=== PATIENT | female | born 1970 | race American Indian/Alaskan Native ===

== ENCOUNTER 2018-09-19 09:17 | Emergency (ER) | payer OTHER ==
--- NOTE | 2018-09-19 09:56 | Emergency Department Report ---
ED Lower Extremity HPI - General Chief Complaint: Extremity Injury, Lower Stated Complaint: KNEE PAIN Time Seen by Provider: 09/19/18 09:45 Source: patient Mode of arrival: Ambulatory Limitations: No Limitations - History of Present Illness Initial Comments: 48-year-old female with history of arthritis and right knee presents with right knee pain 1 week. Patient states she twisted her knee while getting out of a car last week. Pt denies falling or having any kind of direct blow to the knee. States has been icing the joint and taking Aleve, however still is experiencing pain. Patient states she feels a popping sensation in her knee. Complaint: knee injury -: week(s) (1) Injury: Knee: Right Type of Injury: other ("twisted") Severity: moderate Improves With: nothing Worsens With: weight bearing, movement Context: walking Associated Symptoms: snap/pop sensation, swelling, ambulatory Treatments Prior to Arrival: cold therapy, NSAIDS - Related Data Previous Rx's Medication Instructions Recorded Last Taken Type traMADol [Ultram] 50 mg PO Q6HR PRN #7 tablet 09/19/18 Unknown Rx Allergies Allergy/AdvReac Type Severity Reaction Status Date / Time No Known Allergies Allergy Unverified 09/19/18 09:28 ED Review of Systems ROS: Stated complaint: KNEE PAIN Other details as noted in HPI Comment: All other systems reviewed and negative Musculoskeletal: joint swelling, arthralgia Neurological: denies: numbness ED Past Medical Hx - Past Medical History Previous Medical History?: No - Surgical History Past Surgical History?: No - Social History Smoking Status: Never Smoker Substance Use Type: None - Medications Home Medications: Home Medications Medication Instructions Recorded Confirmed Last Taken Type traMADol [Ultram] 50 mg PO Q6HR PRN #7 tablet 09/19/18 Unknown Rx ED Physical Exam - General Limitations: No Limitations General appearance: alert, in no apparent distress, obese - Head Head exam: Present: atraumatic, normocephalic - Eye Eye exam: Present: normal appearance - ENT ENT exam: Present: mucous membranes moist - Neck Neck exam: Present: normal inspection - Respiratory Respiratory exam: Present: normal lung sounds bilaterally. Absent: respiratory distress - Cardiovascular Cardiovascular Exam: Present: regular rate, normal rhythm - Extremities Exam Extremities exam: Present: other (Right knee: no obvious swelling, no deformity present, crepitus present with flexion and extension of lower leg) - Neurological Exam Neurological exam: Present: alert, oriented X3. Absent: motor sensory deficit - Psychiatric Psychiatric exam: Present: normal affect, normal mood ED Course Vital Signs 09/19/18 09:28 Temperature 99.3 F Pulse Rate 65 Respiratory 20 Rate Blood Pressure 189/94 O2 Sat by Pulse 99 Oximetry ED Lower Extremity MDM - Differential Diagnosis internal derangement of knee, knee sprain, arthritis Critical care attestation.: If time is entered above; I have spent that time in minutes in the direct care of this critically ill patient, excluding procedure time. ED Disposition Clinical Impression: Internal derangement of right knee Disposition: DC- TO HOME OR SELFCARE Is pt being admited?: No Condition: Stable Instructions: Knee Sprain (ED), Knee Pain (ED) Prescriptions: traMADol [Ultram] 50 mg PO Q6HR PRN #7 tablet PRN Reason: Pain Referrals: VANCE AGUAYO MD [Staff Physician] - 3-5 Days Time of Disposition: 10:02
[2018-09-19 10:14] VITALS: BP 155/84
== END 2018-09-19 10:11 | disposition home or self-care (01) ==
LOC: ED 09:17
DX: M23.91 Unspecified internal derangement of right knee (principal)